=== PATIENT | male | born 1945 | race Caucasian/White ===

== ENCOUNTER 2019-04-20 11:08 | Outpatient (CLI) | payer MEDICARE, OTHER ==
--- NOTE | 2019-04-20 11:59 | RAD ---
RIGHT HAND 3 VIEWS: HISTORY: Right hand pain. FINDINGS/IMPRESSION: Degenerative changes are present. No fracture, dislocation, or bony destruction is identified. POS: [facility]
--- NOTE | 2019-04-20 12:00 | RAD ---
LEFT HAND 3 VIEWS: HISTORY: Left hand pain. FINDINGS/IMPRESSION: Degenerative changes are present. No fracture, dislocation, or bony destruction is identified. POS: [facility]
== END 2019-04-20 11:09 | disposition home or self-care (01) ==
LOC: RAD-FRANK 11:08
PROVIDERS: ATTEND Internal Medicine
DX: M79.643 Pain in unspecified hand (principal); M19.042 Primary osteoarthritis, left hand; M19.041 Primary osteoarthritis, right hand

== ENCOUNTER 2020-01-17 07:30 | Outpatient (CLI) | payer MEDICARE ==
--- NOTE | 2020-01-17 08:40 | MRI ---
MR OF THE LEFT KNEE WITHOUT CONTRAST INDICATION: 74-year-old male with a mononeuritis of the left lower extremity. The patient is having l eft knee pain which extends down into the left foot with constant numbness in the left fifth digit. TECHNIQUE: Axial and coronal PD fat sat, sagittal T2 fat sat, sagittal PD turbo spin echo and T1 kevin nal images were obtained of the left knee. COMPARISON: Left knee radiograph dated October 07, 2013. FINDINGS: Joint effusion: None. Semimembranosus-medial gastrocnemius popliteal cyst: None. Ligaments: The ACL, PCL, MCL and LCLC are intact. Extensor mechanism: Intact. Menisci: Intact. Articular cartilage: There is a moderate diffuse chondrosis involving the medial and central aspect o f the medial femoral condyle as well as the central aspect of the medial tibial plateau. This is near full-thickness involvement. No subchondral edema is present. There is mild diffuse thinning invo lving the lateral femoral tibial compartment. Mild diffuse thinning is seen involving the patellofemoral compartment. Osseous structures: Very small marginal osteophytes are seen affecting all major compartments of the right knee. Popliteus and IT band: Normal. Visualized neural vasculature: The visualized aspects of the tibial peroneal nerve appear within norm al limits. Popliteal vasculature appears within normal limits. IMPRESSION: 1. Mild osteoarthrosis of the left knee
== END 2020-01-17 07:31 | disposition home or self-care (01) ==
LOC: BICMRI 07:30
PROVIDERS: ATTEND Psychiatry & Neurology Neurology
DX: G58.9 Mononeuropathy, unspecified (principal); M25.562 Pain in left knee; M17.12 Unilateral primary osteoarthritis, left knee

== ENCOUNTER 2021-11-30 12:44 | Outpatient (CLI) | payer MEDICARE | END 2021-11-30 12:45 | disposition home or self-care (01) | LOC: ULT 12:44 | PROVIDERS: ATTEND Family Medicine | DX: M79.604 Pain in right leg (principal) ==

== ENCOUNTER 2022-01-09 09:36 | Outpatient (CLI) | payer MEDICARE | END 2022-01-09 09:37 | disposition home or self-care (01) | LOC: BICRAD 09:36 | PROVIDERS: ATTEND Family Medicine | DX: M79.671 Pain in right foot (principal); M79.672 Pain in left foot; S92.512A Displaced fracture of proximal phalanx of left lesser toe(s), initial encounter for closed fracture; M20.11 Hallux valgus (acquired), right foot; M19.071 Primary osteoarthritis, right ankle and foot; M77.31 Calcaneal spur, right foot ==

== ENCOUNTER 2022-05-09 09:21 | Outpatient (CLI) | payer MEDICARE | END 2022-05-09 09:22 | disposition home or self-care (01) | LOC: BICRAD 09:21 | PROVIDERS: ATTEND Family Medicine | DX: S92.402D Displaced unspecified fracture of left great toe, subsequent encounter for fracture with routine healing (principal) ==

== ENCOUNTER 2022-05-22 12:07 | Outpatient (CLI) | payer MEDICARE | END 2022-05-22 12:08 | disposition home or self-care (01) | LOC: BICRAD 12:07 | PROVIDERS: ATTEND Internal Medicine Gastroenterology | DX: M25.572 Pain in left ankle and joints of left foot (principal) ==

== ENCOUNTER 2022-10-16 10:21 | Outpatient (CLI) | payer MEDICARE | END 2022-10-16 10:22 | disposition home or self-care (01) | LOC: BICRAD 10:21 | PROVIDERS: ATTEND Family Medicine | DX: M25.561 Pain in right knee (principal); M54.50 Low back pain, unspecified; M47.816 Spondylosis without myelopathy or radiculopathy, lumbar region | CPT/HCPCS: 72100 ==